=== PATIENT | female | born 1960 | race Caucasian/White ===

== ENCOUNTER 2018-03-18 08:30 | Outpatient (CLI) | payer OTHER ==
--- NOTE | 2018-03-29 15:45 | Mammography Report ---
Procedure Date: 03/18/2018 Accession Number: [id number] / [id number] Procedure: JENA - Screening Mammo Dig Bilat CPT Code: FULL RESULT: EXAM: Screening Mammo Dig Bilat DATE: 03/18/2018 9:34 AM CLINICAL HISTORY: 58-year-old nulliparous patient for screening TECHNIQUE: Bilateral CC and MLO views were obtained. COMPARISON: The patient reports having had mammograms at an outside facility, but we have received no response to our request. If records in your office indicate where the patient has had previous mammograms, we would be happy to try to obtain them for direct comparison. Otherwise, this will serve as a new baseline. FINDINGS: The breasts demonstrate heterogeneously dense fibroglandular parenchyma bilaterally. No suspicious masses, clustered microcalcifications, or regions of architectural distortion are identified. IMPRESSION: Negative examination RECOMMENDATION: Routine annual screening unless otherwise clinically indicated. BIRADS CATEGORY 1: Negative STANDARD QUALIFYING STATEMENTS: 1. This examination was reviewed with the aid of Computer-Aided Detection (CAD). 2. A negative or benign imaging report should not delay biopsy if clinically suspicious findings are present. Consider surgical consultation if warrented. More than 5% of cancers are not identified by imaging. 3. Dense breasts may obscure an underlying neoplasm.
== END 2018-03-18 08:31 | disposition home or self-care (01) ==
LOC: DI 08:30
PROVIDERS: ATTEND Family Medicine
DX: Z12.31 Encounter for screening mammogram for malignant neoplasm of breast (principal)
CPT/HCPCS: 77067

== ENCOUNTER 2020-04-08 17:08 | Outpatient (CLI) | payer OTHER ==
--- NOTE | 2020-04-08 17:47 | XRAY Report ---
PROCEDURE: Hand 3 View RT INDICATIONS: SWELLING OF RIGHT HAND TECHNIQUE: 3 views of the hand(s) acquired. COMPARISON: None FINDINGS: Bones: No fractures or dislocations. No suspicious bony lesions. Osteoarthritic changes are noted throughout right-hand and wrist particularly involving second and fifth MCP joints, and throughout in terphalangeal joints. Radiolucent area involving dorsal and medial aspect of second metacarpal head i s seen. Subtle lucency is also noted involving dorsal aspect of second and third PIP joints concernin g for erosion secondary to inflammatory arthropathy. Soft tissues: No suspicious soft tissue calcifications. Mild soft tissue swelling around second thr ough fourth PIP joints are seen. 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 Superimposed erosion secondary to infl ammatory arthropathy involving second metacarpal head, second and third PIP joints are suspected. No fracture or dislocation. Reviewed by: Rick Callahan MD on 04/08/2020 5:46 PM PDT Approved by: Rick Callahan MD on 04/08/2020 5:46 PM PDT Station ID: [id number]
== END 2020-04-08 17:09 | disposition home or self-care (01) ==
LOC: DI.S 17:08
PROVIDERS: ATTEND Physician Assistant
DX: M19.031 Primary osteoarthritis, right wrist (principal); M19.041 Primary osteoarthritis, right hand

== ENCOUNTER 2020-04-10 09:43 | Emergency (ER) | payer OTHER ==
[2020-04-10 09:53] VITALS: BP 151/81
[2020-04-10] MEDS ORDERED: BUFFERED LIDOCAINE 10 ML SYRINGE SUBQ STA (10:39)
--- NOTE | 2020-04-10 10:42 | ED Physician Documentation ---
PD HPI LOWER EXT INJURY - Stated complaint Stated Complaint: R KNEE PX - Chief complaint Chief Complaint: Ext Problem - History obtained from History obtained from: Patient - History of Present Illness PD HPI LOW EXT INJURY LOCATION: Right, Knee Type of injury: Fall Where injury occurred: Home Timing - onset: How many days ago (2) Timing - duration: Days (2) Timing - details: Gradual onset, Still present Improved by: Rest, Immobilization Worsened by: Moving, Palpating Associated symptoms: Swelling. No: Weakness, Numbness, Tingling Contributing factors: No: Anticoagulated Similar symptoms before: Has not had sx before Recently seen: Clinic - Additional information Additional information: 60-year-old female has recently struck her hand against a planter box and sustained an abrasion to the middle knuckle and this became infected with increased swelling and redness and the patient was seen by her primary care doctor and placed on the Keflex. The day that this visit to the doctor happened the patient had a fall in her garden and banged her right knee she was able to ambulate on this without much difficulty and this was not addressed at her visit specifically. Today she has increased swelling and pain is barely able to flex and extend the leg she is able to bear some weight on it and she has tenderness to to the touch. She has redness as well she does not have any drainage just an abrasion over the patella. No fever or feeling poorly. Review of Systems Constitutional: denies: Fever Eyes: denies: Decreased vision Ears: denies: Ear pain Nose: denies: Congestion Throat: denies: Sore throat Cardiac: denies: Chest pain / pressure, Palpitations Respiratory: denies: Dyspnea, Cough GI: denies: Abdominal Pain, Nausea, Vomiting : denies: Dysuria PD PAST MEDICAL HISTORY - Past Medical History Past Medical History: No - Past Surgical History Past Surgical History: Yes - Present Medications Home Medications: Ambulatory Orders Medication Instructions Recorded Confirmed Cephalexin [Keflex] 250 mg PO 04/10/20 Hydrocodone/Acetaminophen 1 - 2 each PO Q6H PRN #14 tablet 04/10/20 [Hydrocodon-Acetaminophen 5-325] - Allergies Allergies/Adverse Reactions: Allergies Allergy/AdvReac Type Severity Reaction Status Date / Time Sulfa (Sulfonamide Allergy Unknown Verified 04/10/20 10:01 Antibiotics) - Social History Does the pt smoke?: No Smoking Status: Never smoker Does the pt drink ETOH?: Yes ETOH Use: Wine Does the pt have substance abuse?: No - Immunizations Immunizations are current?: Yes PD ED PE NORMAL - Vitals Vital signs reviewed: Yes (hypertensive ) - General General: Alert and oriented X 3, No acute distress, Well developed/nourished - HEENT HEENT: Atraumatic, PERRL, EOMI - Respiratory Respiratory: No respiratory distress - Derm Derm: Normal color, Warm and dry, No rash - Extremities Extremities: No deformity, Other (There is swelling and tenderness to the right knee. There is an abrasion directly over the patella the patella itself is specifically tender and there does appear to be a joint effusion. The ligaments appear stable to testing she has maximum pain when bending the knee. No significant erythema, ) Results - Vitals Vitals: Vital Signs - 24 hr 04/10/20 09:49 Temperature 36.6 C Heart Rate 67 Respiratory 18 Rate Blood Pressure 151/81 H O2 Saturation 100 Oxygen O2 Source Room air - Labs Labs: Laboratory Tests 04/10/20 04/10/20 04/10/20 11:20 11:20 11:20 WBC 9.5 RBC 4.02 L Hgb 13.6 Hct 39.8 MCV 99.0 MCH 33.8 H MCHC 34.2 RDW 12.2 Plt Count 316 MPV 9.9 Neut # (Auto) 6.7 H Lymph # (Auto) 2.0 [place] # (Auto) 0.7 Eos # (Auto) 0.0 Baso # (Auto) 0.0 Absolute Nucleated RBC 0.00 Nucleated RBC % 0.0 ESR 15 Sodium 135 Potassium 3.7 Chloride 101 Carbon Dioxide 25 Anion Gap 9.0 BUN 19 Creatinine 0.7 Estimated GFR (MDRD) 86 L Glucose 102 H Calcium 8.7 Total Bilirubin 1.0 AST 18 ALT 16 Alkaline Phosphatase 74 C-Reactive Protein 2.0 H Total Protein 7.6 Albumin 4.2 Globulin 3.4 Albumin/Globulin Ratio 1.2 Lipase 34 - Rads (name of study) knee Radiology: Prelim report reviewed (Pression: Possible nondisplaced fracture superior margin of the patella. Please correlate clinically for point tenderness.), EMP read indepedently, See rad report PD MEDICAL DECISION MAKING - ED course Complexity details: reviewed results, re-evaluated patient, considered differential, d/w patient ED course: 60-year-old female who is had a fall and injury to her right knee 2 days ago has increased swelling and pain in the knee today and is asked to come to the emergency department by her primary care doctor with concerns about a septic joint. The patient is able to bear weight on her leg she has some trouble when she goes to bend the leg with pain above the patella. She does not have any significant redness to the knee she does have general swelling to the knee. There is an abrasion over the patella. An x-ray does not demonstrate any evidence of a joint effusion. There is evidence of a nondisplaced fracture of the superior end of the patella. The patient was sent to the emergency department for evaluation of her knee with concerns about a joint infection. Blood work was obtained and this was unremarkable. There is no significant elevation of the CRP or ESR and the white blood cell count is normal. It appears exceedingly unlikely that there is a septic joint involved in this process and I suspect that her increased pain and swelling have to do with a no ndisplaced fracture that the patient is continued to ambulate with. I believe subjecting the patient to arthrocentesis is not indicated Departure - Departure Disposition: 01 Home, Self Care Clinical Impression: Patellar fracture Qualifiers: Encounter type: initial encounter Fracture type: closed Fracture morphology: transverse Fracture alignment: nondisplaced Laterality: right Qualified Code(s): S82.034A - Nondisplaced transverse fracture of right patella, initial encounter for closed fracture Condition: Stable Instructions: ED Fx Patella Follow-Up: Juan Diego Bazan MD [Primary Care Provider] - Tay Morgan MD [Provider Admit Priv/Credential] - Prescriptions: Hydrocodone/Acetaminophen [Hydrocodon-Acetaminophen 5-325] 1 - 2 each PO Q6H PRN #14 tablet PRN Reason: pain
--- NOTE | 2020-04-10 11:12 | XRAY Report ---
PROCEDURE: Knee 4 View RT INDICATIONS: fall increased pain/swelling patella abraided TECHNIQUE: 4 views of the right knee(s) were acquired. COMPARISON: None. FINDINGS: Bones: Possible nondisplaced fracture of the superior margin of the patella. No suspicious bony lesio ns. [id number] tricompartmental osteoarthritis. Soft tissues: No joint effusion. No suspicious soft tissue calcifications. IMPRESSION: Possible nondisplaced fracture superior margin of the patella. Please correlate clinically for point tenderness. Reviewed by: Bridget Son MD, PhD on 04/10/2020 11:10 AM PDT Approved by: Bridget Son MD, PhD on 04/10/2020 11:10 AM PDT Station ID: [id number]
[2020-04-10 11:45] LABS: BASOPHILS % (AUTO) 0.3 %; EOSINOPHILS % (AUTO) 0.3 %; HGB - HEMOGLOBIN 13.6 g/dL (12.0-16.0); LYMPHOCYTES % (AUTO) 20.7 %; MEAN CORPUSCULAR HEMOGLOBIN 33.8 pg (27.0-31.0); MEAN CORPUSCULAR HGB CONC 34.2 g/dL (32.0-36.0); MEAN PLATELET VOLUME 9.9 fL (7.9-10.8); MONOCYTES # (AUTO) 0.7 10^3/uL (0.0-1.0); MONOCYTES % (AUTO) 7.7 %; NEUTROPHILS # (AUTO) 6.7 10^3/uL (1.5-6.6); NEUTROPHILS % (AUTO) 70.7 %; PLT - PLATELET COUNT 316 10^3/uL (130-450); RED BLOOD COUNT 4.02 10^6/uL (4.20-5.40); RED CELL DISTRIBUTION WIDTH 12.2 % (12.0-15.0); WHITE BLOOD COUNT 9.5 x10^3/uL (4.8-10.8)
[2020-04-10 11:58] LABS: ALBUMIN 4.2 g/dL (3.2-5.5); ALBUMIN/GLOBULIN RATIO 1.2 (1.0-2.2); CALCIUM 8.7 mg/dL (8.5-10.3); CREATININE 0.7 mg/dL (0.4-1.0); TOTAL PROTEIN 7.6 g/dL (6.7-8.2)
[2020-04-10] MEDS ORDERED: KETOROLAC 30 MG/ML VIAL IVP STA (13:34)
== END 2020-04-10 14:18 | disposition home or self-care (01) ==
LOC: ED 09:43
DX: S82.034A Nondisplaced transverse fracture of right patella, initial encounter for closed fracture (principal); S80.211A Abrasion, right knee, initial encounter; W18.30XA Fall on same level, unspecified, initial encounter; Y92.007 Garden or yard of unspecified non-institutional (private) residence as the place of occurrence of the external cause
CPT/HCPCS: 36415; 80053; 83690; 85025; 85651; 86140; 96374; 99284

== ENCOUNTER 2021-02-11 12:39 | Outpatient (CLI) | payer OTHER ==
--- NOTE | 2021-02-11 13:58 | XRAY Report ---
PROCEDURE: Knee 3 View LT INDICATIONS: PX IN LT KNEE TECHNIQUE: 3 views of the left knee(s) were acquired. COMPARISON: None. FINDINGS: Bones: No fractures or dislocations. No suspicious bony lesions. Moderately bulky tricompartment o steophytes. Medial compartment joint space loss. At least moderate knee joint effusion. Soft tissues: No joint effusion. No suspicious soft tissue calcifications. IMPRESSION: At least moderate knee joint effusion with at least moderate degenerative arthritis of t he left. Reviewed by: Timothy Burrows MD on 02/11/2021 1:56 PM PDT Approved by: Timothy Burrows MD on 02/11/2021 1:56 PM PDT Station ID: [id number]
== END 2021-02-11 12:40 | disposition home or self-care (01) ==
LOC: DI.S 12:39
PROVIDERS: ATTEND Physician Assistant
DX: M25.562 Pain in left knee (principal); M17.12 Unilateral primary osteoarthritis, left knee

== ENCOUNTER 2022-01-28 13:32 | Outpatient (CLI) | payer OTHER ==
--- NOTE | 2022-01-30 16:22 | Mammography Report ---
BILATERAL DIGITAL SCREENING MAMMOGRAM 3D/2D: 01/28/2022 CLINICAL: Routine screening. Family history of breast cancer. No prior exams were available for comparison. There are scattered fibroglandular elements in both br easts. No significant masses, calcifications, or other findings are seen in either breast. IMPRESSION: NEGATIVE There is no mammographic evidence of malignancy. A 1 year screening mammogram is recommended. This exam was interpreted at Station ID: [id number]. NOTE: For mammograms, a report in lay terms will be sent to the patient. Approximately 15% of breast malignancies will not be visualized mammographically. In the management of a palpable breast mass, a negative mammogram must not discourage biopsy of a clinically suspicious lesion. Electronically Signed By: Marcello Thurston M.D., jr/natasha:01/28/2022 14:49:38 ACR BI-RADS Category 1: Negative 3341F PARENCHYMAL PATTERN: (A) - The breast(s) demonstrate(s) scattered fibroglandular densities. BI-RADS CATEGORY: (1) - 1 RECOMMENDATION: (ANNUAL) - Recommend routine annual screening mammography. [id number] 1 year screening LATERALITY: (B)
== END 2022-01-28 13:33 | disposition home or self-care (01) ==
LOC: DI.S 13:32
DX: Z12.31 Encounter for screening mammogram for malignant neoplasm of breast (principal); Z80.3 Family history of malignant neoplasm of breast

== ENCOUNTER 2024-01-05 15:14 | Outpatient (CLI) | payer OTHER ==
--- NOTE | 2024-01-05 15:47 | XRAY Report ---
PROCEDURE: Shoulder 2+V LT INDICATIONS: LEFT SHOULDER PAIN TECHNIQUE: 3 views of the shoulder were acquired. COMPARISON: None. FINDINGS: Bones: No fractures or dislocations. Mild degenerative changes of the acromioclavicular and glenohu meral joints. No suspicious bony lesions. Visualized ribs appear intact. Soft tissues: No suspicious soft tissue calcifications. The visualized lungs are within normal limi ts. IMPRESSION: No acute bony abnormality. Mild degenerative changes of the glenohumeral and acromioclavicular joints . Reviewed by: Sirdhar Mark MD on 01/05/2024 3:46 PM PDT Approved by: Sridhar Mark MD on 01/05/2024 3:46 PM PDT Station ID: [id number]
== END 2024-01-05 15:15 | disposition home or self-care (01) ==
LOC: DI.S 15:14
PROVIDERS: ATTEND Registered Nurse
DX: M19.012 Primary osteoarthritis, left shoulder (principal)

== ENCOUNTER 2024-05-13 06:33 | Emergency (ER) | payer OTHER ==
--- NOTE | 2024-05-13 09:28 | ED Physician Documentation ---
PD HPI LOWER EXT INJURY - Stated complaint Stated Complaint: LT KNEE PX - Chief complaint Chief Complaint: Ext Problem - History obtained from History obtained from: Patient - History of Present Illness PD HPI LOW EXT INJURY LOCATION: Left, Knee Type of injury: Other (no recent injury. Has had ongoing pain in knee with xray showing minimal cartilage, and arthritis. Has ortho appt this coming weeek. Has had progressive swelling and pain of knee with limitied ROM. Much more painful the past few days, despite Ibuprofen and Tylenol.). No: Fall, Twist Timing - duration: Weeks Timing - details: Gradual onset, Still present Associated symptoms: Swelling. No: Discolored PD PAST MEDICAL HISTORY - Past Surgical History Past Surgical History: Yes - Present Medications Home Medications: Ambulatory Orders Medication Instructions Recorded Confirmed Hydrocodone/Acetaminophen 1 - 2 each PO Q6H PRN #14 tablet 04/10/20 05/13/24 [Hydrocodon-Acetaminophen 5-325] HYDROcod/ACETAM 5/325 [[place] 5/325] 1 ea PO Q6H PRN #18 tablet 05/13/24 Meloxicam [Mobic] 7.5 mg PO BID 10 Days #20 tablet 05/13/24 - Allergies Allergies/Adverse Reactions: Allergies Allergy/AdvReac Type Severity Reaction Status Date / Time Sulfa (Sulfonamide Allergy Unknown Verified 04/10/20 10:01 Antibiotics) - Social History Does the pt smoke?: No Smoking Status: Never smoker Does the pt drink ETOH?: Yes Does the pt have substance abuse?: No - Immunizations Immunizations are current?: Yes PD ED PE NORMAL - Vitals Vital signs reviewed: Yes - General General: Alert and oriented X 3, Well developed/nourished, Other (appears in pain left knee. ) - Derm Derm: Normal color, Warm and dry, No rash - Extremities Extremities: Other (Large tense effusion in the left knee. Tender to palpation. No redness warmth nor skin sores.) - Neuro Neuro: No motor deficit, No sensory deficit Results - Vitals Vitals: Vital Signs - 24 hr 05/13/24 05/13/24 05/13/24 06:40 07:30 09:34 Temperature 36.0 C L 37.0 C Heart Rate 85 71 71 Respiratory 14 15 18 Rate Blood Pressure 155/89 H 141/81 H 150/95 H O2 Saturation 100 100 97 Oxygen O2 Source Room air - Labs Labs: Microbiology 05/13/24 09:24 Gram Stain - Final Knee - Left Laboratory Tests 05/13/24 05/13/24 09:24 09:24 Fluid Source SYNOVIAL Fluid Color YELLOW Fluid Clarity CLOUDY Fluid WBC 03873 Fluid RBC 5000 Fluid Neutrophils % 85 Fluid Lymphocytes % 2 Fluid Monocytes % 13 Fld Mesothelial Cell % Not Reportable Fluid Crystals NONE SEEN Procedures - Arthrocentesis Joint: Knee, Left Preparation: Sterile prep and drape Anesthesia: Lidocaine 1% Fluid: Clear, Sent for cell count, Sent for crystals, Sent for culture, Fluid obtained - cc (170) Aftercare: Dressing applied, No complications, Patient tolerated well PD Medical Decision Making - ED course Complexity details: considered differential (The patient with ongoing knee pain with consideration of meniscal versus ligament. Has orthopedic appointment this coming week. Has been having increasing effusion and swelling and now consi derable pain and limited motion. She has had previous x-ray of it with arthritic changes and minimal cartil), d/w patient ED course: The patient's pain at this point seems most likely related to the tension and tightness of the effusion. Shared discussion and decision with the patient was to drain off fluid. No signs of infection to it. There is no warmth redness nor sores. It has been a gradual worsening. No history of gout. I cleansed the wound and her skin with antiseptic. Initial anesthesia with the lidocaine with epi. The joint space was entered and a total of 170 mL of fluid was drawn out with a return of the shape of the knee to a more normal anatomy. The pain was considerably decreased and she had better range of motion. I did suggest she had some anti-inflammatories. She did have an the support that she has been using. I added an Dale wrap for now. She has crutches of her own. She has an appointment with Ortho this coming week so I deferred any further imaging etc. to that appointment. The fluid was sent for cell count and culture but very low suspicion for infection. White cells are seen on the initial Gram stain but no organisms. The white cell count is less than 50,000 (its actually 10,885). Departure - Departure Disposition: 01 Home, Self Care Clinical Impression: Internal knee problem, Knee effusion, left, Knee pain Condition: Stable Record reviewed to determine appropriate education?: Yes Follow-Up: Juan Diego Bazan MD [Primary Care Provider] - Prescriptions: Meloxicam [Mobic] 7.5 mg PO BID 10 Days #20 tablet HYDROcod/ACETAM 5/325 [[place] 5/325] 1 ea PO Q6H PRN #18 tablet PRN Reason: Pain Comments: We christelle off 170 mL of synovial fluid from the knee. This should decrease the pressure in there and allow a bit better range of motion. However it does not take care of the underlying inflammatory process or condition. Continue with your knee brace and crutches for partial to no weightbearing as needed. Follow-up with orthopedics Wednesday as planned. We will send the fluid to the lab to look for crystals and culture but does not look to be infected at all. I would suggest some regular anti-inflammatories. I had acetaminophen 500 650 mg 4 times daily regularly as well for pain. I wrote a prescription for some hydrocodone/acetaminophen to use every 6 hours as needed for pain. These were sent to the [facility] pharmacy in [place]. I am prescribing a short course of narcotic pain medication for you. These are potentially dangerous and addictive medications that should be used carefully. These medications may constipate you. Take an nsag-pzv-taiqjia stool softener such as docusate twice daily with plenty of water while taking these medications. If you go 24 hours without a bowel movement, take [id number] MiraLAX, per package instructions. Do not drink or drive while taking these medications. If you received narcotic or sedating medications while in the emergency d epartment do not drive for 24 hours. Store this medication in a safe, secure place and out of reach of children. It is a violation of federal law to give or sell this medication to another person or to use in a manner other than prescribed. The ED will not refill narcotic prescriptions, including prescriptions lost or stolen. You can dispose of unwanted medications at the [facility]'s office or at several pharmacies such as [facility]. I wish you well with your orthopedic visit. Forms: PCP List Discharge Date/Time: 05/13/24 09:34
[2024-05-13 09:45] VITALS: BP 150/95; O2SAT 97
[2024-05-13 09:53] LABS: CC,BF RBC 5000 /mm^3; CC,BF WBC 10885 /mm^3
[2024-05-13 09:54] LABS: BF CLARITY CLOUDY; BF COLOR YELLOW; BF SOURCE SYNOVIAL
[2024-05-13 10:19] LABS: LYMPHOCYTES %,BODY FLUID 2 %; MONOCYTES %,BODY FLUID 13 %; NEUTROPHILS %, BF 85 %
== END 2024-05-13 09:34 | disposition home or self-care (01) ==
LOC: ED 06:33
DX: M25.562 Pain in left knee (principal); M25.462 Effusion, left knee
CPT/HCPCS: 20610; 87070; 87205; 89051; 89060